=== PATIENT | female | born 2000 | race Caucasian/White ===

== ENCOUNTER 2019-01-13 06:53 | Day surgery (SDC) | payer MEDICAID ==
[~2019-01-13 06:53] MED LIST: NEXIUM20 MG PO
[2019-01-13 07:29] LABS: HEMATOCRIT 42.1 % (36.0-48.0); HEMOGLOBIN 14.1 g/dL (12-16); MCH 28.4 pg (26.0-34.0); MCHC 33.5 g/dL (31.0-37.0); MCV 84.7 fL (80.0-100.0); MEAN PLATELET VOLUME 11.1 fL (7.4-10.4); RBC 4.97 10x6/uL (4.00-5.40)
[2019-01-13 07:37] LABS: HCG URINE NEGATIVE (NEGATIVE)
[2019-01-13] MEDS ORDERED: NAPROSYN500 MG PO (07:37)
[2019-01-13 08:02] VITALS: BP 127/77; BMI 31.4
--- NOTE | 2019-01-13 13:06 | NUR ---
DC INSTRUCTIONS GIVEN TO PT/BOYFRIEND. STATE UNDERSTANDING. DC'D IV CATH FULLY INTACT.
--- NOTE | 2019-01-13 13:10 | NUR ---
PT LEFT UNIT VIA WC AT 1309
--- NOTE | 2019-02-04 14:43 | HP ---
PATIENT: RADHA MCDONALD MEDICAL RECORD: [id number] ACCOUNT: [id number] LOCATION:[facility] : 98 ADMISSION DATE: 01/13/19 PCP: ALEJANDRO MILLER MD HISTORY AND PHYSICAL EXAMINATION HISTORY OF PRESENT ILLNESS: Radha is 18 years old. She has been having persistent problems with strep pharyngitis and being admitted for tonsillectomy and adenoidectomy. PAST MEDICAL HISTORY: Otherwise negative. PAST SURGICAL HISTORY: None. CURRENT MEDICATIONS: Nexium, Nexplanon. ALLERGIES: No known drug allergies. PHYSICAL EXAMINATION: GENERAL: She is healthy-appearing, developmentally normal. FACE: Normal, symmetric, no lesions. EYES: Sclerae and conjunctivae are normal. EARS: Canals and TMs are normal. NOSE: No mass, polyps, or drainage. ORAL CAVITY AND OROPHARYNX: A 3+ cryptic tonsils with tonsilliths. NECK: No masses, no adenopathy. CHEST: Clear. CARDIOVASCULAR: Regular rate and rhythm, no murmur. EXTREMITIES: Normal. IMPRESSION: Chronic caseous pharyngitis and adenotonsillar hypertrophy. PLAN: Tonsillectomy and adenoidectomy. TRANSINT:[id number] Voice Confirmation ID: [id number] DOCUMENT ID: [id number] ALEJANDRO MILLER MD at 1443 CC: [id number] DICTATION DATE: 01/10/19945 PREPARATION SUPERVISOR FREEZING: 01/10/19 1019 [facility] 01/13/19 [place] [id number]
--- NOTE | 2019-02-04 14:43 | OP ---
PATIENT NAME: JOY MCDONALD MEDICAL RECORD: [id number] :98 LOCATION:[facility] ADMISSION DATE: SURGEON: ALEJANDRO SOLARES MD DATE OF OPERATION: 01/13/2019 PREOPERATIVE DIAGNOSIS: Chronic pharyngitis. POSTOPERATIVE DIAGNOSIS: Chronic pharyngitis. PROCEDURE: Tonsillectomy and adenoidectomy. SURGEON: Alejandro Solares MD ANESTHESIA: General orotracheal. BLOOD LOSS: Less than 5 cc. SPECIMENS: Right and left tonsil. COMPLICATIONS: None. DISPOSITION: Recovery, stable. FINDINGS: Tremendous amount of caseous material in the tonsils. PROCEDURE IN DETAIL: She was brought to the operating room, placed in the supine position, and sedated and intubated by anesthesia. Eyes were taped. Table was turned 90 degrees. Head drapes were applied and she was positioned for tonsillectomy. Using a headlight, a Steffany-Clinton mouth gag was carefully inserted and elevated on towel on her chest. The palate was examined and palpated, it was normal. A red rubber catheter was placed to the right side of the nose and the pharynx was grasped with tonsil clamp to retract the soft palate. Using a mirror, the nasopharynx was examined. Suction cautery on a setting of 35 was used to ablate and suction the adenoid pad with no significant bleeding. The choanae and eustachian orifices were normal bilaterally. The red rubber catheter was let down and removed. The right tonsil was grasped at the superior pole with a straight Allis clamp. Spatula tip cautery on a setting of 8 was used to dissect out the tonsil along its capsule, preserving the anterior and posterior tonsillar pillar. The left tonsil was removed in same fashion. Then, both sides of the nose were irrigated with saline. The pharynx was suctioned. Tonsillar fossae were agitated. Suction cautery on a setting of 20 was used to control minimal oozing. With the field clean and dry, she was awakened, extubated, and transported to recovery in good condition. No complications. TRANSINT:[id number] Voice Confirmation ID: [id number] DOCUMENT ID: [id number] OPERATIVE REPORT [id number] HARRYJOYALEJANDRO BAILEY MD at 1443 CC: [id number] DICTATION DATE: 01/13/19 1133 LEADING FIREFIGHTER: 01/13/19 1248 [facility] 01/13/19 [facility] [address] [place] [id number]
== END 2019-01-13 13:09 | disposition home or self-care (01) ==
LOC: D.OPS 06:53 → D.PAN 07:30 → D.OPS 09:20
PROVIDERS: ATTEND Otolaryngology
DX: J35.01 Chronic tonsillitis (principal)